=== PATIENT | male | born 1965 | race Caucasian/White ===

== ENCOUNTER 2025-06-29 17:28 | Emergency (ER) | payer MEDICAID, OTHER ==
[~2025-06-29] VITALS: Ht 180.3 cm; Wt 82.0 kg
[2025-06-29 17:37] VITALS: BP 145/71; PULSE 71; RESP 16; TEMP 98.2; O2SAT 98
[2025-06-30] MEDS ORDERED: ISOS5TAB PO (06:51)
[2025-06-30] MEDS ORDERED: CARV6.2551 PO (06:51)
[2025-06-30] MEDS ORDERED: SACU1CAP2 (06:51)
== END 2025-06-29 17:37 | disposition left against medical advice (07) ==
LOC: EDBD 17:28 → ER 17:28
DX: R07.89 Other chest pain (principal); Z79.899 Other long term (current) drug therapy